=== PATIENT | female | born 1950 | race Caucasian/White ===

== ENCOUNTER → 2020-04-11 | Outpatient (CLI) | payer MEDICARE, OTHER ==
--- NOTE | 2020-04-11 11:43 | MRI ---
EXAM DESCRIPTION: Neck w/o Contrast Magnetic Resonance Imaging. CLINICAL HISTORY: HEAD AND NECK CANCER COMPARISON: None. TECHNIQUE: Multiplanar MRI, multiple sequences, without gadolinium IV contrast. No adverse reactions. FINDINGS: Airway appear symmetric from the nasopharynx to the larynx with no abnormal signal visualized. Air-fluid level in the left maxillary antrum. Included sinuses including the sphenoid air cells are unremarkable. No masses or asymmetric signal or size seen in the submandibular glands, parotid glands, or sublingual salivary glands. Symmetric signal and size of the common including the base. The subcutaneous adipose tissue is unremarkable. The major node spaces are negative. No dominant solid mass, no abnormal cysts, no fluid collections. IMPRESSION: No mass, no fluid collection and no abnormal cysts. No enlarged lymph nodes. The airway appears symmetric with no mass effect displacement or effacement. Sensitivity of this exam was reduced due to lack of IV contrast. Electronically signed by: Sunil Queen MD 04/11/2020 11:41 AM CDT
== END ==
LOC: MRI 08:07
PROVIDERS: ATTEND Dentist Oral and Maxillofacial Surgery
DX: C44.329 Squamous cell carcinoma of skin of other parts of face (principal)